=== PATIENT | female | born 1990 | race Caucasian/White ===

== ENCOUNTER 2024-03-21 10:00 | Inpatient (IN) ==
[2024-03-21] MEDS ORDERED: Lidocaine 1% VIAL 10 MG/ML 30 ML VIAL INJ PRN (11:42)
[2024-03-21 13:19] LABS: Urine Appearance Clear; Urine Bilirubin Negative (Negative); Urine Blood Negative (Negative); Urine Color Light-Yellow; Urine Glucose Negative (Negative); Urine Ketones Negative (Negative); Urine Nitrite Negative (Negative); Urine Protein Negative (Negative); Urine Specific Gravity 1.006 (1.002-1.030); Urine Urobilinogen Negative (Negative)
[2024-03-21 13:30] LABS: Urine Benzodiazepine Screen None Detected (None Detect); Urine Cannabinoids Screen None Detected (None Detect); Urine Opiates Screen None Detected (None Detect)
[2024-03-21] MEDS: miSOPROStol 100 mcg TAB PO ONE (18:32)
[2024-03-21] MEDS: Lactated Ringers 1000 ml BAG 1,000 ML IV ONE (20:00)
[2024-03-21 20:28] LABS: ABS Eosinophils 0.1 10^3/uL (0.0-0.5); ABS Monocytes 0.7 10^3/uL (0.0-0.9); Eosinophil % 0.8 %; Hematocrit 36.3 % (35-45); Hemoglobin 12.7 g/dL (11.5-14.3); Lymphocyte % 22.2 %; Mean Corpuscular Hemoglobin 34.2 pg (27-33); Mean Corpuscular Hgb Conc 34.9 g/dL (31-36); Mean Corpuscular Volume 98.1 fL (80-97); Mean Platelet Volume 8.4 fL (7.5-11.2); Platelet Count 221 10^3/uL (150-450); Red Cell Distribution Width 12.9 % (12-17); White Blood Count 8.8 10^3/uL (3.8-11.8)
[2024-03-21] MEDS: OBEPIDURAL (200 ML) 200 ML EPIDURAL ONE (22:46)
[2024-03-21] MEDS ORDERED: Sodium Citrate/Citric Acid LIQ 15 ML UDC PO PRN (22:52)
[2024-03-21] MEDS ORDERED: Phenylephrine 40 mcg/mL 10mL (400mcg) SYRINGE IV PUSH PRN (22:52)
[2024-03-21] MEDS: Phenylephrine 40 mcg/mL 10mL (400mcg) SYRINGE IV PUSH PRN (23:17)
[2024-03-21] MEDS: Lactated Ringers 1000 ml BAG 1,000 ML IV SCH (23:34)
[2024-03-22] MEDS: Calcium Carb (TUMS) 500 mg CHEW TAB PO PRN (06:15)
[2024-03-22] MEDS: Oxytocin in LR 20,000 MILLI.UNIT/1,000 ML BAG IV SCH (07:53)
[2024-03-22] MEDS: Methylergonovine 0.2 mg AMPULE 1 ml AMP ONE (08:10)
[2024-03-22] MEDS ORDERED: Glycerin ADULT 2.4 gm SUPP PR PRN (08:24)
[2024-03-22] MEDS ORDERED: ceFAZolin 2 GM in NS PREMIX 2 GM/100 ML BAG IVPB ONE (08:50)
[2024-03-22] MEDS: Ondansetron 4 mg VIAL 2 MG/ML 2 ml VIAL IV PRN (08:53)
[2024-03-22] MEDS: Dibucaine 1% OINT 28.35 GM TUBE PR PRN (08:56)
[2024-03-22] MEDS: Witch Hazel PAD JAR TOPICAL PRN (08:56)
[2024-03-22] MEDS ORDERED: Lactated Ringers 1000 ml BAG 1,000 ML IV SCH (09:00)
[2024-03-22] MEDS: Methylergonovine 0.2 mg AMPULE 1 ml AMP IM ONE (09:02)
[2024-03-22] MEDS: ceFAZolin 2 GM PREMIX 2 GM/50 ML BAG IV ONE (10:01)
[2024-03-22] MEDS: Lactated Ringers 1000 ml BAG 1,000 ML IV ONE (10:04)
[2024-03-22] MEDS: Lidocaine 1.5% EPI 1:200,000 30 ML SDV ONE (10:04)
[2024-03-22] MEDS: OBEPIDURAL (200 ML) 200 ML EPIDURAL SCH (10:05)
[2024-03-22] MEDS: Oxytocin in LR 20,000 MILLI.UNIT/1,000 ML BAG IV ONE (11:15)
[2024-03-22] MEDS: Ondansetron 4 mg VIAL 2 MG/ML 2 ml VIAL ONE (11:18)
[2024-03-23 07:30] LABS: ABS Eosinophils 0.1 10^3/uL (0.0-0.5); ABS Lymphocytes 1.5 10^3/uL (1.0-4.8); ABS Monocytes 0.7 10^3/uL (0.0-0.9); ABS Neutrophils 10.1 10^3/uL (1.5-7.6); Eosinophil % 0.7 %; Hematocrit 30.6 % (35-45); Hemoglobin 10.8 g/dL (11.5-14.3); Lymphocyte % 12.3 %; Mean Corpuscular Hgb Conc 35.1 g/dL (31-36); Mean Corpuscular Volume 99.6 fL (80-97); Mean Platelet Volume 8.3 fL (7.5-11.2); Platelet Count 187 10^3/uL (150-450); Red Blood Count 3.08 10^6/uL (3.63-4.92); Red Cell Distribution Width 12.8 % (12-17); White Blood Count 12.4 10^3/uL (3.8-11.8)
[2024-03-23] MEDS: RHO D Immune Globulin (HUMAN) 300 MCG = 1,500 I.U. INJ IM ONE (14:13)
[2024-03-24 09:13] VITALS: BP 127/81
== END 2024-03-24 14:09 | disposition home or self-care (01) | DRG 560 ==
LOC: MCHOBOUT 10:00 → MCHOB 11:22
PROVIDERS: ADMIT Midwife; ATTEND Midwife